=== PATIENT | female | born 1995 | race Caucasian/White ===

== ENCOUNTER → 2016-08-17 | Outpatient (CLI) | payer BC, OTHER ==
[~2016-08-17] MED LIST: BCPILLS PO
[2016-08-17 16:53] LABS: ALT/SGPT 40 U/L (12-78); AST/SGOT 29 U/L (15-37)
== END | disposition home or self-care (01) ==
LOC: C.LAB1850 16:01
PROVIDERS: ATTEND Internal Medicine
DX: B27.90 Infectious mononucleosis, unspecified without complication (principal)

== ENCOUNTER 2016-11-25 23:40 | Emergency (ER) | payer BC, OTHER ==
[~2016-11-25] VITALS: Ht 152.4 cm; Wt 49.9 kg
[2016-11-25 23:47] VITALS: TEMP 36.5; Ht 152.4 cm; Wt 49.9 kg
[2016-11-26] MEDS ORDERED: SODIUM CHLORIDE 0.9% 1000ML 1,000 ML IV STA (00:01)
[2016-11-26] MEDS ORDERED: PROCHLORPERAZINE 5 MG/ML 2 ML VIAL IV STA (00:01)
[2016-11-26] MEDS ORDERED: KETOROLAC TROMETHAMINE 30 MG/ML VIAL IV STA (00:01)
[2016-11-26] MEDS ORDERED: DiphenhydrAMINE HCL 50 MG/ML VIAL IV STA (00:01)
--- NOTE | 2016-11-26 00:08 | EMERGENCY ROOM VISIT NOTE ---
History Report prepared by Scribe: Ed Finley Under the Supervision of: Dr. Romelia Rowan M.D. First contact with patient: 23:56 Chief Complaint: HEADACHE Stated Complaint: HEADACHE,VOMITING,SHAKING,NECK SWOLLEN,VISION History of Present Illness The patient is a 20 year old female who presents to the Emergency Room with complaints of a persistent headache since approximately 1999 tonight. The headache is mostly on the right side and is rated 7/10 in severity. The patient noticed vision changes prior to the onset of the headache while she was doing homework. She denies photophobia. The patient also complains of nausea and vomiting. She has not had anything for pain. The patient has never had a headache like this before. The patient denies recent illness, although she had mono earlier this year. She has no known medical problems. The patient is on control. She has no known drug allergies. Source of History: patient Onset: 1999 tonight Position: head Symptom Intensity: 7/10 Timing: other (persistent) Associated Symptoms: + nausea, + vomiting Review of Systems See HPI for pertinent positives & negatives. A total of 10 systems reviewed and were otherwise negative. Past Medical & Surgical Medical Problems: (1) Mononucleosis Family History No pertinent family history Social History Smoking Status: Never Smoker Marital Status: single Housing Status: lives with roommate Occupation Status: [id number] student Current/Historical Medications Scheduled Control Pills ( Control Pills), 1 TAB PO DAILY Allergies Coded Allergies: No Known Allergies (Unverified , 11/26/16) Physical Exam Vital Signs Date Time Temp Pulse Resp B/P (MAP) Pulse Ox O2 Delivery O2 Flow Rate FiO2 11/26/16 02:01 55 18 95/59 98 11/26/16 01:29 51 11/26/16 01:11 60 18 91/63 96 Room Air 11/25/16 23:47 36.5 94 22 113/66 100 Room Air Physical Exam Vital signs reviewed. General: Well-appearing female, in no significant distress. HEENT: No scleral icterus, PERRLA, neck supple. Atraumatic. Cardiovascular: Regular rate and rhythm, no extra sounds. Pulmonary: Clear to auscultation bilaterally, normal work of breathing. Abdomen: Soft, nontender, nondistended, positive bowel sounds. Musculoskeletal: Atraumatic, no peripheral edema. Neurologic: Patient awake alert and oriented x 3, full strength in all 4 extremities. Cranial nerves 2 through 12 grossly intact. No meningeal signs. Skin: Warm, dry, no rash Medical Decision & Procedures ER Provider Diagnostic Interpretation: Radiology results as stated below per my review and radiologist interpretation: CT Head: No ICH, mass effect or edema. No evidence of acute cortical stroke. Visualized sinus and mastoid air cells are clear. Radiologist: Santo Montemayor MD. Laboratory Results 11/26/16 00:15 Red Blood Count 4.56, Mean Corpuscular Volume 88.8, Mean Corpuscular Hemoglobin 30.7, Mean Corpuscular Hemoglobin Concent 34.6, Mean Platelet Volume 10.1, Neutrophils (%) (Auto) 66.5, Lymphocytes (%) (Auto) 27.3, Monocytes (%) (Auto) 5.5, Eosinophils (%) (Auto) 0.4, Basophils (%) (Auto) 0.2, Neutrophils # (Auto) 5.95, Lymphocytes # (Auto) 2.44, Monocytes # (Auto) 0.49, Eosinophils # (Auto) 0.04, Basophils # (Auto) 0.02 11/26/16 00:15 Test 11/26/16 00:15 White Blood Count 8.95 K/uL (4.8-10.8) Red Blood Count 4.56 M/uL (4.2-5.4) Hemoglobin 14.0 g/dL (12.0-16.0) Hematocrit 40.5 % (37-47) Mean Corpuscular Volume 88.8 fL (80-100) Mean Corpuscular Hemoglobin 30.7 pg (25-34) Mean Corpuscular Hemoglobin Concent 34.6 g/dl (32-36) Platelet Count 334 K/uL (130-400) Mean Platelet Volume 10.1 fL (7.4-10.4) Neutrophils (%) (Auto) 66.5 % Lymphocytes (%) (Auto) 27.3 % Monocytes (%) (Auto) 5.5 % Eosinophils (%) (Auto) 0.4 % Basophils (%) (Auto) 0.2 % Neutrophils # (Auto) 5.95 K/uL (1.4-6.5) Lymphocytes # (Auto) 2.44 K/uL (1.2-3.4) Monocytes # (Auto) 0.49 K/uL (0.11-0.59) Eosinophils # (Auto) 0.04 K/uL (0-0.5) Basophils # (Auto) 0.02 K/uL (0-0.2) RDW Standard Deviation 38.7 fL (36.4-46.3) RDW Coefficient of Variation 12.0 % (11.5-14.5) Immature Granulocyte % (Auto) 0.1 % Immature Granulocyte # (Auto) 0.01 K/uL (0.00-0.02) Anion Gap 8.0 mmol/L (3-11) Est Creatinine Clear Calc Drug Dose 65.0 ml/min Estimated GFR () 94.6 Estimated GFR (Non- 81.6 BUN/Creatinine Ratio 16.9 (10-20) Calcium Level 9.2 mg/dl (8.5-10.1) Laboratory results per my review. Medications Administered Medications (Trade) Dose Ordered Sig/Mauri Route Start Time Stop Time Status Last Admin Dose Admin Sodium Chloride 1,000 ml @ 999 mls/hr Q1H1M STAT IV 11/26/16 00:01 11/26/16 01:01 DC 11/26/16 00:22 999 MLS/HR Diphenhydramine HCl (Benadryl Inj) 25 mg NOW STAT IV 11/26/16 00:01 11/26/16 00:05 DC 11/26/16 00:22 25 MG Ketorolac Tromethamine (Toradol Inj) 15 mg NOW STAT IV 11/26/16 00:01 11/26/16 00:05 DC 11/26/16 00:25 15 MG Prochlorperazine Edisylate (Compazine Inj) 5 mg NOW STAT IV 11/26/16 00:01 11/26/16 00:05 DC 11/26/16 00:24 5 MG ED Course 0000: Past medical records reviewed. The patient was evaluated in room B12b. A complete history and physical examination was performed. 0001: Compazine 5 mg IV, Toradol 15 mg IV, Benadryl 25 mg IV, NSS 1000 ml @ 999 mls/hr. 0115: The patient was sound asleep. 0158: Reassessed the patient. Discussed the discharge instructions. She verbalized understanding. The patient is ready for discharge. Medical Decision Differential Diagnosis: Intracranial hemorrhage, intracranial mass, migraine headache, tension headache , sinusitis, meningitis Blood Pressure Screening: Patient was found to have mildly low blood pressure on screening which is consistent with her baseline, and does not require follow- up. Medication Reconciliation: I attest that I have personally reviewed the patient' s current medication list. This patient was evaluated and appeared to be in no distress. IV access was obtained and lab work was drawn, pt was placed on the cardiac cath rn. Pt was hydrated with NSS. She was given IV compazine, toradol and benadryl. She fell asleep and had significant resolution of symptoms. As this is her first PASCAL of this type, a CT head was performed without any significant IC abnl. Pt was d/c to f/u with her PCP for reevaluation and return to the ED for worsening of symptoms or any medical concerns. Impression Primary Impression: Migraine headache Scribe Attestation The scribe's documentation has been prepared under my direction and personally reviewed by me in its entirety. I confirm that the note above accurately reflects all work, treatment, procedures, and medical decision making performed by me. Departure Information Dispostion Home / Self-Care Referrals No Doctor, Assigned (PCP) Forms HOME CARE DOCUMENTATION FORM, IMPORTANT VISIT INFORMATION, Work Instructions Patient Instructions My [facility] Additional Instructions Diagnosis: Migraine headache Please drink plenty of clear fluids. Ibuprofen 600 mg every 6 hours as needed for pain with food. Follow-up with your physician for reevaluation within the next week. Return to the ER for worsening of symptoms or any medical concerns. Problem Qualifiers Primary Impression: Migraine headache Migraine type: with aura Status migrainosus presence: without status migrainosus Intractability: intractable Qualified Codes: G43.119 - Migraine with aura, intractable, without status migrainosus
[2016-11-26 00:34] LABS: BASO % 0.2 %; BASO ABS # 0.02 K/uL (0-0.2); COMPLETE YES; EOS % 0.4 %; HEMATOCRIT 40.5 % (37-47); IG% 0.1 %; LYMPH % 27.3 %; LYMPH ABS # 2.44 K/uL (1.2-3.4); MEAN CELL VOLUME 88.8 fL (80-100); MEAN CORPUSCULAR HEMOGLOBIN 30.7 pg (25-34); MEAN CORPUSCULAR HGB CONC 34.6 g/dl (32-36); MEAN PLATELET VOLUME 10.1 fL (7.4-10.4); MONO % 5.5 %; NEUT % 66.5 %; PLATELET COUNT 334 K/uL (130-400); RED BLOOD COUNT 4.56 M/uL (4.2-5.4); WHITE BLOOD COUNT 8.95 K/uL (4.8-10.8)
[2016-11-26 00:51] LABS: BUN/CREATININE RATIO 16.9 (10-20); CALCIUM 9.2 mg/dl (8.5-10.1); POTASSIUM 3.5 mmol/L (3.5-5.1)
[2016-11-26] MEDS ORDERED: BCPILLS PO (01:12)
[2016-11-26 02:01] VITALS: BP 95/59; PULSE 55; O2SAT 98
--- NOTE | 2016-11-26 05:55 | DIAGNOSTIC IMAGING REPORT ---
HEAD CT NONCONTRAST CT DOSE: 537.48 mGy.cm HISTORY: Mental status change new PASCAL, vomiting TECHNIQUE: Multiaxial CT images of the head were performed without the use of intravenous contrast. Comparison: None. Findings: The paranasal sinuses and mastoid air cells are clear. The calvarium and skull base are intact. The ventricles and sulci are within normal limits. There is no mass, hematoma, midline shift, or acute infarct. Impression: No acute intracranial abnormality. Electronically signed by: Jose Woods M.D. 11/26/2016 5:54 AM Dictated Date/Time: 11/26/2016 5:53 AM
== END 2016-11-26 02:01 | disposition home or self-care (01) ==
LOC: C.EDB 23:42
DX: G43.909 Migraine, unspecified, not intractable, without status migrainosus (principal); Z86.19 Personal history of other infectious and parasitic diseases